=== PATIENT | male | born 1960 | race Two or more races ===

== ENCOUNTER 2025-04-06 13:20 | Day surgery (SDC) | payer MEDICARE, SELFPAY ==
[2025-04-04 16:29] VITALS: BMI 31.1
[2025-04-06 13:46] VITALS: BP 151/80; PULSE 86; RESP 16; TEMP 36.6; O2SAT 97
[2025-04-06] MEDS: LACTATED RINGERS 1000ML 1,000 ML 50 ML IV (13:54)
--- NOTE | 2025-04-06 14:02 | P.PNANES_ITS ---
[facility] Disclaimer: The information contained in this section may have been updated after the patient was seen, as this information can be updated by other users. Medical History (Updated 04/06/25 @ 14:05 by Betito Darden II, MD) No significant past medical history No significant past medical history Family History Other No significant family history Social History Smoking Status: Never smoker alcohol intake: never substance use type: denies use current occupational status: retired Travel in the last 8 weeks?: None [facility] Anesthesia Checklist Patient Identification Patient Identification: Verbal (Name & ) Structural Data Admitted From: Home Planned Operative Procedure/s: colonoscopy Consent for Planned Operative Procedure(s) Verified: Yes NPO Status Verified Time NPO: 00:00 Airway Assessment Mallampati Score:: Class II C-Spine Mobility Assessed: Yes TMJ Mobility Assessed: Yes Dentition: Good Dentition Neurological Assessment Level of Consciousness: Awake, Alert and Appropriate Anesthesia Plan Anesthesia Risk discussed: Yes Anesthesia Plan: Verified ASA Class: II Anesthesia Type: MAC
--- NOTE | 2025-04-06 14:03 | EXP.HP ---
History of Present Illness *Admission Date: 04/06/25 *Reason for visit:: Personal history of adenomatous colon polyps *History of present illness: Mr. Echeverria is a 64-year-old gentleman who is here for follow-up surveillance colonoscopy secondary to a personal history of adenomatous colon polyps and family history of colon cancer (father). The examination is deemed medically necessary for surveillance colonoscopy. The patient has been seen, interviewed and examined prior to the procedure by both myself and the anesthesia provider. [facility] Disclaimer: The information contained in this section may have been updated after the patient was seen, as this information can be updated by other users. Medical History (Updated 04/06/25 @ 14:05 by Betito Darden II, MD) No significant past medical history No significant past medical history Family History Other No significant family history Social History Smoking Status: Never smoker alcohol intake: never current occupational status: employed Travel in the last 8 weeks?: Inside the [place] Review of Systems Review of Systems Review of systems (narrative): Negative *Cardiovascular Comments: Negative *Gastrointestinal Comments: Negative *Genitourinary Comments: Negative *Musculoskeletal Comments: Negative *Neurologic Comments: Negative Meds Home Medications and Allergies Home Medications ?Medication ?Instructions ?Recorded ?Confirmed ?Type sodium,potassium,mag sulfates 17.5 See Rx Instructions PO .COMPLEX 03/23/25 Rx gram-3.13 gram-1.6 gram oral soln #354 mL (Suprep Bowel Prep Kit) cholecalciferol (vitamin D3) 10 10 mcg PO DAILY 04/04/25 04/06/25 History mcg (400 unit) capsule (Vitamin D3) magnesium 200 mg tablet 200 mg PO DAILY 04/04/25 04/06/25 History milk thistle seed extract 140 1 cap PO QODHS 04/04/25 04/06/25 History mg-milk thistle 500 mg capsule vitamin B12 0.5 mg-folic acid 1 mg 1 tab PO DAILY 04/04/25 04/06/25 History tablet vitamin B6 1.7 mg-cyanocobalamin 1 tab PO DAILY 04/04/25 04/06/25 History 2.4 mcg-herbs tablet New Prescriptions to Start Prescriptions: Allergies Allergy/AdvReac Type Severity Reaction Status Date / Time No Known Allergies Allergy Verified 04/06/25 13:44 Exam Data for Last 24 hours Vital signs and Labs for Last 24 Hours: Temp Pulse Resp BP Pulse Ox O2 Del Method 97.8 F 86 16 151/80 H 97 Room Air 04/06/25 13:46 04/06/25 13:46 04/06/25 13:46 04/06/25 13:46 04/06/25 13:46 04/06/25 13:46 I & O for Last 24 hours: Intake & Output 04/03/25 04/04/25 04/05/25 04/06/25 23:59 23:59 23:59 23:59 Weight 230 lb *Routine HEENT Exam Head: Present normocephalic Eye: Present EOMI and PERRL ENT: Present mucous membranes moist *Routine Neck Exam Neck: Present supple *Routine Respiratory Exam Respiratory: Present CTA bilaterally *Routine Cardiovascular Exam Cardiovascular: Present RRR *Routine Abdominal Exam Abdominal: Present soft and normoactive bowel sounds; Absent tenderness *Routine Rectal Exam Rectal:: deferred *Routine Genitalia Exam Genitalia:: deferred *Routine Extremities Exam Extremities: Absent cyanosis, clubbing or edema *Routine Skin Exam Skin: Present warm; Absent rash *Routine Neurological Exam Neurological: Present alert and oriented X3 Assessment and Plan *Assessment and plan (1) Personal history of adenomatous and serrated colon polyps: Status: Acute Category: Medical Code(s): Z86.0101 - Personal history of adenomatous and serrated colon polyps (2) Family history of colon cancer in father: Status: Acute Category: Medical Code(s): Z80.0 - Family history of malignant neoplasm of digestive organs Plan A/P: 1. Personal history of adenomatous colon polyps and family history of colon cancer is the preprocedural diagnosis. The patient will be anesthetized/sedated using MAC sedation. The patient has been seen and examined. Cardiac and lung assessment prior to the examination is stable. Proceed with planned screening/surveillance colonoscopy.
--- NOTE | 2025-04-06 14:06 | P.PCN_ITS ---
[facility] Procedure Note Date: 04/06/25 Time: 14:35 Procedure Note:: Colonoscopy Procedure Report: Colonoscopy Endoscopist: Betito Darden II, MD Referring physician: Sebastian Vallejo MD, [address] [place] [id number] Date of Procedure: April 06, 2025 Equipment: Glocal [id number] adult colonoscope Sedation: MAC sedation Indication: Mr. Echeverria is a 64-year-old gentleman who is here for follow-up screening/surveillance colonoscopy. The patient does have a family history of colon cancer (father with colon cancer at the age of 66). He also has a personal history of adenomatous colon polyps. He had his first colonoscopy at age 43 and had 5 polyps removed at that time. His colonoscopy at age 48 revealed no polyps. His colonoscopy in November 2014 revealed 3 polyps (tubular adenomas x 2/hyperplastic polyp x 1) which were removed. His last colonoscopy was September 2020 at which time 6 polyps were removed (tubular adenomas x 4/hyperplastic polyps x 2) were removed. He reports no abdominal pain, weight loss or change in bowel habits. Procedure: Prior to the procedure, a history and physical exam was performed, and patient's medications and allergies were reviewed. The risks, benefits and alternatives of the sedation and procedure were discussed with the patient. All questions were answered and informed consent was obtained. The patient was brought to the procedure room. Patient identification and proposed procedure were verified by the physician and the nurse. The patient was placed in a left lateral decubitus position and the scope was passed under direct vision. Throughout the procedure, the patient's blood pressure, pulse, and oxygen saturations were monitored continuously. The colonoscopy was accomplished without difficulty. The patient tolerated the procedure well. Findings: On digital rectal examination there was normal rectal tone. There were no external hemorrhoids. There was a very tiny less than pea-sized nodule on the lower margin of the prostate. The colonoscope was introduced through the anal canal to the rectum and advanced to the cecum. The ileocecal valve and appendiceal orifice were identified. The scope was advanced a short distance into the ileum which appeared grossly normal. The scope was then withdrawn into the colon. The cecum, ascending and transverse colon and mucosa were grossly normal. There were scattered diverticuli throughout the descending and sigmoid colon (LEFT colon). The rectum itself was normal. Upon retroflexion within the rectum there were grade 2 internal hemorrhoids. The preparation was excellent throughout with [place] Preparation Score of 9. The cecal time was 12 minutes. Impression: 1. Left-sided diverticulosis 2. Grade 2 internal hemorrhoids 3. Tiny pea-sized nodule on lower margin of prostate Plan: Based on his personal history of adenomatous polyps and family history, I would recommend repeat surveillance colonoscopy again in 5 years. I would encourage psyllium bulking fiber supplementation on a long-term daily maintenance basis. I will check PSA level and inquire about any prior prostate history.
[2025-04-06 14:33] VITALS: BP 84/63; PULSE 74; RESP 17; TEMP 36.2; O2SAT 95
[2025-04-06 14:43] VITALS: BP 98/57; PULSE 72; RESP 16; O2SAT 96
[2025-04-06 14:53] VITALS: BP 107/53; PULSE 76; RESP 16; O2SAT 97
[2025-04-06 15:03] VITALS: BP 125/77; PULSE 75; RESP 16; O2SAT 95
[2025-04-06 16:09] LABS: Prostate Specific Ag, Diagnost 1.70 ng/ml (0.0-4.0)
== END 2025-04-06 15:17 | disposition home or self-care (01) ==
PROVIDERS: PCP Neurological Surgery; Visit Provider Internal Medicine Gastroenterology
PROC: 0DJD8ZZ Inspection of Lower Intestinal Tract, Via Natural or Artificial Opening Endoscopic (ICD-10-PCS; CPT 45378; principal; 2025-04-06 15:00)
DX: Z12.11 Encounter for screening for malignant neoplasm of colon (principal); K57.90 Diverticulosis of intestine, part unspecified, without perforation or abscess without bleeding; K64.1 Second degree hemorrhoids; N40.2 Nodular prostate without lower urinary tract symptoms; Z86.0101 Personal history of adenomatous and serrated colon polyps; Z80.0 Family history of malignant neoplasm of digestive organs
CPT/HCPCS: 45378; 36415; 84153; J2003; J2704; J7120